=== PATIENT | male | born 1935 | race Caucasian/White ===

== ENCOUNTER → 2018-11-30 | Outpatient (REF) | payer MEDICARE, OTHER ==
[~2018-11-30] MED LIST: ASPIRIN EC81 MG PO; ASPIRIN81 MG OR; BACTRIM DS1 TAB PO; CORDARONE200 MG PO; COUMADIN2.5 MG OR; COUMADIN5 MG OR; DILANTIN100 MG PO; DILTIAZEM120 MG OR; FERROUS SULF15 MG/M1 OR; FLAGYL500 MG PO; FUROSEMIDE40 MG OR; HYDROCHLOROT12.5 MG OR; HYDROCHLOROT25 MG PO; LASIX 40 MG TAB40 MG PO; NORCO1 TA1 PO; OMEPRAZOLE40 MG PO; PACERONE100 MG OR; PRILOSEC40 MG PO; SINEMET 10/1001 TA1 OR; TOPROL XL50 MG OR; ZESTRIL10 MG OR; ZOCOR20 MG OR
== END | disposition home or self-care (01) ==
LOC: DI 07:57
PROVIDERS: ATTEND Internal Medicine
DX: R05 Cough (principal)

== ENCOUNTER 2019-11-21 | Emergency (ER) | payer MEDICARE, OTHER ==
[~2019-11-21] MED LIST changes: +ANTIVERT PO; +ARICEPT10 MG PO; +SIMVASTATIN20 MG PO; +SINGULAIR10 MG PO; -TOPROL XL50 MG OR; +TOPROL XL50 MG PO; -ZESTRIL10 MG OR; +ZESTRIL10 MG PO
[2019-11-21 07:27] LABS: HEMATOCRIT 41.8 % (39.0-50.0); HEMOGLOBIN 13.4 g/dl (14.0-18.0); IMMATURE GRANULOCYTES 0.4 % (0.0-5.0); MEAN CELL VOLUME 88.6 fL CALC (80.0-100.0); MEAN CORPUSCULAR HGB 28.4 pG CALC (26.0-32.0); MEAN CORPUSCULAR HGB CONC 32.1 g/L CALC (32.0-36.0); NEUT# 3.65 thou/uL (1.82-7.42); RED BLOOD COUNT 4.72 mill/uL (4.70-6.10); RED CELL DISTRI WIDTH 18.6 % (11.5-15.5)
[2019-11-21 07:41] LABS: PROTHROMBIN TIME 10.4 SECONDS (9.0-12.5)
[2019-11-21 07:42] LABS: ALBUMIN 4.1 g/dL (3.2-5.0); ALKALINE PHOSPHATASE 76 u/l (38-126); AMYLASE 77 u/l (30-110); ANION GAP 12 (6-22 (CALC)); BUN 26 mg/dL (8-23); BUN/CREATININE RATIO 20 (12-20 (CALC)); CARBON DIOXIDE 28 mmol/l (22-30); CHLORIDE 103 mmol/l (95-108); CREATININE 1.3 mg/dL (0.7-1.3); GFR 52 ML/MIN (>=60 (CALC)); GFR FOR AFR.AMER. > 60 ML/MIN (>=60 (CALC)); LIPASE 150 u/l (23-300); POTASSIUM 4.8 mmol/l (3.5-5.1); SGOT/AST 17 u/l (19-48); SODIUM 138 mmol/l (137-146); TOTAL PROTEIN 7.4 g/dL (6.3-8.2)
[2019-11-21 07:43] LABS: BILIRUBIN, TOTAL 0.6 mg/dL (0.0-1.4)
== END 2019-11-21 09:44 | disposition left against medical advice (07) ==
PROVIDERS: Emergency Medicine
DX: R19.7 Diarrhea, unspecified (principal); I25.10 Atherosclerotic heart disease of native coronary artery without angina pectoris; I10 Essential (primary) hypertension; I25.2 Old myocardial infarction; Z86.73 Personal history of transient ischemic attack (TIA), and cerebral infarction without residual deficits; Z85.038 Personal history of other malignant neoplasm of large intestine; Z90.49 Acquired absence of other specified parts of digestive tract; Z91.19 Patient's noncompliance with other medical treatment and regimen
CPT/HCPCS: Q9967

== ENCOUNTER 2022-07-05 16:34 | Observation (INO) | payer MEDICARE, OTHER ==
[~2022-07-05] VITALS: Ht 182.9 cm; Wt 75.7 kg
[2022-07-05] VITALS (15 sets, daily range): BP systolic 80–112; BP diastolic 45–83
--- NOTE | 2022-07-05 16:34 | NUR ---
RECTAL TEMPERATURE 100.7. NOTIFIED OF RESULT
--- NOTE | 2022-07-05 16:58 | NUR ---
PATIENT ESCORTED TO ROOM IN WHEELCHAIR IN [facility]. PROVIDER NOTIFIED OF PATIENT STATUS.
[2022-07-05 17:26] LABS: URINE BLOOD DIPSTICK NEGATIVE (NEGATIVE); URINE COLOR YELLOW; URINE GLUCOSE - DIPSTICK NEGATIVE (NEGATIVE); URINE KETONE NEGATIVE (NEGATIVE); URINE LEUK ESTERASE NEGATIVE (NEGATIVE); URINE PROTEIN - DIPSTICK TRACE mg/dL (NEG-TRACE); URINE SPECIFIC GRAVITY 1.025
[2022-07-05 17:27] LABS: HEMATOCRIT 30.3 % (39.0-50.0); MEAN CELL VOLUME 101.3 fL CALC (80.0-100.0); MEAN CORPUSCULAR HGB 33.4 pG CALC (26.0-32.0); NEUT# 3.37 thou/uL (1.82-7.42); RED BLOOD COUNT 2.99 mill/uL (4.70-6.10); RED CELL DISTRI WIDTH 18.1 % (11.5-15.5)
[2022-07-05 17:27] LABS: URINE BILIRUBIN - DIPSTICK SMALL (NEGATIVE); URINE NITRITE - DIPSTICK NEGATIVE (Negative)
[2022-07-05 17:41] LABS: IMMATURE GRANULOCYTES 17.9 % (0.0-5.0)
[2022-07-05 17:42] LABS: ALBUMIN 4.1 g/dL (3.2-5.0); ANION GAP 15 (6-22 (CALC)); BUN 21 mg/dL (8-23); BUN/CREATININE RATIO 19 (12-20 (CALC)); CARBON DIOXIDE 23 mmol/l (22-30); CHLORIDE 105 mmol/l (95-108); CREATININE 1.1 mg/dL (0.7-1.3); GFR FOR AFR.AMER. > 60 ML/MIN (>=60 (CALC)); GFR OTHER RACES > 60 ML/MIN (>=60 (CALC)); SODIUM 139 mmol/l (137-146); TOTAL PROTEIN 7.4 g/dL (6.3-8.2)
[2022-07-05 17:43] LABS: ALKALINE PHOSPHATASE 105 u/l (38-126); BILIRUBIN, TOTAL 1.3 mg/dL (0.0-1.4); SGOT/AST 141 u/l (19-48)
--- NOTE | 2022-07-05 17:52 | NUR ---
Reassessment of patient completed. No distress noted.
--- NOTE | 2022-07-05 19:16 | NUR ---
ASSUMED CARE OF PT. PT. RESTING QUIETLY IN BED, FAMILY AT BEDSIDE. C/O FEELING COLD TEMP 99. DENIES SOB, C/P OR DISCOMFORT AT THIS TIME
[2022-07-05] MEDS ORDERED: NAMENDA1 TAB PO (21:05)
--- NOTE | 2022-07-05 21:38 | NUR ---
THE PATIENT IS LEAVING AMA. ATTEMPTED TO CALL [facility] TO INQUIRE ABOUT THE STAYING WITH THE PATIENT. THE WORD WAS THAT THIS REQUEST WAS DENIED AND THE STATED THAT IF SHE COULD NOT STAY, HE WOULD NOT STAY. ATTEMPTED TO CALL FOUR TIMES AND WAS GOING TO GO TO THE FLOOR TO ASK IF THE COULD STAY, BUT THEY DID NOT WANT TO WAIT ANY LONGER AND SIGNED OUT AMA.
== END 2022-07-05 21:38 | disposition left against medical advice (07) ==
LOC: ED 16:34 → ED-I 18:45 → ED 19:02 → MS2 19:03
PROVIDERS: Family Medicine; ADMIT Internal Medicine; ATTEND Internal Medicine
DX: R50.9 Fever, unspecified (principal); I10 Essential (primary) hypertension; I25.10 Atherosclerotic heart disease of native coronary artery without angina pectoris; Z86.73 Personal history of transient ischemic attack (TIA), and cerebral infarction without residual deficits; Z85.038 Personal history of other malignant neoplasm of large intestine; Z20.822 Contact with and (suspected) exposure to COVID-19
CPT/HCPCS: J1650

== ENCOUNTER 2022-08-30 10:20 | Emergency (ER) | payer MEDICARE, OTHER ==
[~2022-08-30] VITALS: Ht 182.9 cm; Wt 75.0 kg
[2022-08-30] VITALS (16 sets, daily range): BP systolic 91–138; BP diastolic 41–110
[~2022-08-30 10:20] MED LIST changes: +NAMENDA1 TAB PO
[2022-08-30 11:55] LABS: HEMATOCRIT 29.6 % (39.0-50.0); HEMOGLOBIN 9.8 g/dl (14.0-18.0); MEAN CELL VOLUME 102.1 fL CALC (80.0-100.0); MEAN CORPUSCULAR HGB 33.8 pG CALC (26.0-32.0); MEAN CORPUSCULAR HGB CONC 33.1 g/dL CAL (32.0-36.0); NEUT# 1.97 thou/uL (1.82-7.42); RED BLOOD COUNT 2.9 mill/uL (4.70-6.10); RED CELL DISTRI WIDTH 18.6 % (11.5-15.5)
[2022-08-30 11:56] LABS: IMMATURE GRANULOCYTES 20.3 % (0.0-5.0)
[2022-08-30 11:59] LABS: ALBUMIN 3.8 g/dL (3.2-5.0); ALKALINE PHOSPHATASE 53 u/l (38-126); ANION GAP 8 (6-22 (CALC)); BILIRUBIN, TOTAL 0.6 mg/dL (0.0-1.4); BUN 32 mg/dL (8-23); BUN/CREATININE RATIO 30 (12-20 (CALC)); CARBON DIOXIDE 28 mmol/l (22-30); CHLORIDE 106 mmol/l (95-108); CREATININE 1.1 mg/dL (0.7-1.3); GFR FOR AFR.AMER. > 60 ML/MIN (>=60 (CALC)); GFR OTHER RACES > 60 ML/MIN (>=60 (CALC)); POTASSIUM 4.1 mmol/l (3.5-5.1); SODIUM 138 mmol/l (137-146); TOTAL PROTEIN 7.2 g/dL (6.3-8.2)
[2022-08-30 12:00] LABS: SGOT/AST 46 u/l (19-48)
== END 2022-08-30 15:24 | disposition home or self-care (01) ==
LOC: ED 10:20
PROVIDERS: Family Medicine
DX: S00.03XA Contusion of scalp, initial encounter (principal); S41.112A Laceration without foreign body of left upper arm, initial encounter; I10 Essential (primary) hypertension; I25.10 Atherosclerotic heart disease of native coronary artery without angina pectoris; I25.2 Old myocardial infarction; W19.XXXA Unspecified fall, initial encounter; Y92.009 Unspecified place in unspecified non-institutional (private) residence as the place of occurrence of the external cause; Z86.73 Personal history of transient ischemic attack (TIA), and cerebral infarction without residual deficits

== ENCOUNTER 2022-09-03 07:25 | Inpatient (IN) | payer MEDICARE, OTHER ==
[~2022-09-03] VITALS: Ht 182.9 cm; Wt 73.2 kg
[2022-09-03] VITALS (11 sets, daily range): BP systolic 100–128; BP diastolic 50–80
--- NOTE | 2022-09-03 07:41 | NUR ---
PT ESCORTED VIA EMS STRETCHER TO ROOM 12 FOR EVAL OF WEAKNESS AND FAILURE TO THRIVE
--- NOTE | 2022-09-03 08:02 | NUR ---
FAMILY AT BEDSIDE.
[2022-09-03 08:12] LABS: BASO% 5.8 % (0-3); EOS% 0.2 % (0-8); HEMATOCRIT 31.5 % (39.0-50.0); HEMOGLOBIN 10.4 g/dl (14.0-18.0); MEAN CELL VOLUME 101.3 fL CALC (80.0-100.0); MEAN CORPUSCULAR HGB 33.4 pG CALC (26.0-32.0); MONO% 9.1 % (2-13); NEUT# 5.27 thou/uL (1.82-7.42); NEUT% 61.2 % (42-76); RED BLOOD COUNT 3.11 mill/uL (4.70-6.10); RED CELL DISTRI WIDTH 18.6 % (11.5-15.5)
--- NOTE | 2022-09-03 08:20 | NUR ---
COMLETED STRAIGHT CATH, PT TOLERATED PROCEDURE WELL, NO COMPLICATIONS. URINE 300 ML CLEAR DARK YELLOW NOTED. PT RESTING WITH FAMILY AT BEDSIDE, CALL LIGHT WITHIN REACH
[2022-09-03 08:25] LABS: ALBUMIN 3.6 g/dL (3.2-5.0); ALKALINE PHOSPHATASE 40 u/l (38-126); ANION GAP 11 (6-22 (CALC)); BUN 25 mg/dL (8-23); BUN/CREATININE RATIO 23 (12-20 (CALC)); CARBON DIOXIDE 29 mmol/l (22-30); CHLORIDE 107 mmol/l (95-108); CREATININE 1.1 mg/dL (0.7-1.3); GFR FOR AFR.AMER. > 60 ML/MIN (>=60 (CALC)); GFR OTHER RACES > 60 ML/MIN (>=60 (CALC)); POTASSIUM 3.7 mmol/l (3.5-5.1); SGOT/AST 22 u/l (19-48); SODIUM 142 mmol/l (137-146); TOTAL PROTEIN 7.3 g/dL (6.3-8.2)
[2022-09-03 08:27] LABS: BILIRUBIN, TOTAL 1.3 mg/dL (0.0-1.4)
[2022-09-03 08:44] LABS: IMMATURE GRANULOCYTES 14.7 % (0.0-5.0)
[2022-09-03 09:24] LABS: URINE BILIRUBIN - DIPSTICK NEGATIVE (NEGATIVE); URINE BLOOD DIPSTICK NEGATIVE (NEGATIVE); URINE COLOR YELLOW; URINE GLUCOSE - DIPSTICK NEGATIVE (NEGATIVE); URINE KETONE NEGATIVE (NEGATIVE); URINE LEUK ESTERASE NEGATIVE (NEGATIVE); URINE PROTEIN - DIPSTICK TRACE mg/dL (NEG-TRACE); URINE SPECIFIC GRAVITY 1.025
[2022-09-03 09:25] LABS: URINE NITRITE - DIPSTICK NEGATIVE (Negative)
--- NOTE | 2022-09-03 10:47 | NUR ---
patient to be admitted to [facility]. family at bedside, agrees with POC.
--- NOTE | 2022-09-03 10:50 | NUR ---
PT ARRIVED FROM ED VIA STRETCHER ACCOMPAINED BY FAMILY MEMBERS AND LEI MATAMOROS. PT DROWSY, WAKES TO PAINFUL STIMULI ONLY. IV SITE APPEARS HEALTHY. FLORIST IN PLACE. PT SLID FROM STRETCHER TO BED X3 PERSON ASSIST, PT BECAME MORE ALERT WITH TRANSFER, BUT THEN BACK TO SLEEP. INCONTINENT OF BOWEL AND BLADDER PER FAMILY. BED ALARM SET FOR SAFETY. DISCUSSED POC AND SAFETY PRECAUTIONS WITH FAMILY MEMBERS AT THIS TIME. ORIENTED TO ROOM AND CALL LIGHT SYSTEM. WILL CONTINUE TO MONITOR.
--- NOTE | 2022-09-03 13:31 | NUR ---
MRI SCREENING COMPLETED AT THIS TIME, NOTIFIED DINESH DAVIDSON OF BULLET IN HIP/BUTTOCKS.
--- NOTE | 2022-09-03 14:54 | NUR ---
was asked to apply padding to bed rails, so i applied one, but family asked for the other not to. that way the family member could keep an eye on patient. I was also asked to apply papo hose, but was asked to wait until he was awake per family
--- NOTE | 2022-09-03 17:30 | NUR ---
PT INCONTINENT OF BLADDER AT THIS TIME. PERICARE PROVIDED WITH CLEAN BRIEF. REPOSITIONED ON LEFT SIDE AND SAT UP IN BED. CHOCOLATE ENSURE PROVIDED TO FAMILY MEMBER UPON REQUEST. COMPRESSION STOCKINGS APPLIED, EDUCATED PT FAMILY MEMBER ON IMPORTANCE OF DVT PROPHYLAXIS. PT MORE ALERT AT THIS TIME, EYES OPEN AND RESPONSIVE TO MINIMAL QUESTIONING. PT ABLE TO FOLLOW COMMANDS TO DRINK WATER AND NO APPARENT PROBLEMS SWALLOWING WHILE SITTING UP AT 90 DEGREES. CALL LIGHT WITHIN REACH. WILL CONTINUE TO MONITOR.
--- NOTE | 2022-09-03 20:11 | NUR ---
PT SLEEPING IN SEMI FOWLERS POSITION DAUGHTER AT BEDSIDE. RESPONSES TO PAINFUL STEMULI ONLY.RESPIRATIONS EVEN AND UNLABORED ON 2L NC.LUNG SOUNDS CLEAR. HEART RHYTHM IRREGULAR WITH TELE IN PLACE. BOWEL SOUNDS ACTIVE. #20G EMS RW PATENT. REDNESS NOTED TO BUTTOCKS. Q2H ENFORCED. NO SIGNS OF ANY PAINS OR DISCOMFORTS.DAUGHTER QUESTIONS MEDICATIONS, TO BE CALLED TO VERIFY. DAUGHTER TO REMAIN AT SIDE.ALL SAFTEY PRECAUTIONS ARE IN PLACE WITH CALL LIGHT IN REACH. BED ALARM ACTIVE
[2022-09-04] VITALS (8 sets, daily range): BP systolic 96–117; BP diastolic 47–66
--- NOTE | 2022-09-04 00:36 | NUR ---
PT SLEEPING IN SEMI FOWLERS POSITION. RESPIRATIONS EVEN AND UNLABORED ON 1L NC. TELE MONITORING IN PLACE. IV SITE NOTED. PT REPOSITIONED AT THIS TIME. NO SIGNS OF ANY DISTRESS. ALL SAFTEY PRECAUTIONS ARE IN PLACE WITH CALL LIGHT IN REACH
--- NOTE | 2022-09-04 01:42 | NUR ---
TYLENOL ADMINISTERED FOR LOW GRADE TEMP. CRUSHED AND ADMINISTERED WITH CHOCOLATE PUDDING. PT TOLERATING WELL. DAUGHTER AT BEDSIDE CONTINUING TO FEED PT PUDDING.
--- NOTE | 2022-09-04 04:50 | NUR ---
PT SLEEPING IN SEMI FOLWERS POSITION WITH DAUGHTER AT BEDSIDE. RESPIRATIONS EVEN AND UNLABORED ON 1L NC. TELE MONITORING IN PLACE. NEW #22G LAC STARTED.MORNING LABS COLLECTED AT THIS TIME. #20G EMS REMOVED WITH CATH INTACT. PT REPOSITIONED AT THIS TIME. AQUACEL APPLIED TO BUTTOCKS. PT YELLS OUT WHEN TURNING BUT DOES NOT ANSWER WHEN ASKED IF HE IS IN PAIN. PT PREVIOSULY MEDICATED WITH TYLENOL. PILLOWS APPLIED FOR COMFORT.ALL SAFTEY PRECAUTIONS ARE IN PLACE WITH CALL LIGHT IN REACH
[2022-09-04 05:56] LABS: BASO% 2.5 % (0-3); EOS% 0.2 % (0-8); HEMATOCRIT 27.8 % (39.0-50.0); HEMOGLOBIN 9.4 g/dl (14.0-18.0); LYMPH% 9.4 % (15-41); MEAN CELL VOLUME 101.8 fL CALC (80.0-100.0); MEAN CORPUSCULAR HGB 34.4 pG CALC (26.0-32.0); MEAN CORPUSCULAR HGB CONC 33.8 g/dL CAL (32.0-36.0); MONO% 8.8 % (2-13); NEUT# 5.24 thou/uL (1.82-7.42); NEUT% 64.4 % (42-76); RED BLOOD COUNT 2.73 mill/uL (4.70-6.10); RED CELL DISTRI WIDTH 17.8 % (11.5-15.5)
[2022-09-04 06:05] LABS: IMMATURE GRANULOCYTES 14.7 % (0.0-5.0)
[2022-09-04 06:07] LABS: ALBUMIN 3.5 g/dL (3.2-5.0); ALKALINE PHOSPHATASE 41 u/l (38-126); ANION GAP 11 (6-22 (CALC)); BILIRUBIN, TOTAL 1.1 mg/dL (0.0-1.4); BUN 31 mg/dL (8-23); BUN/CREATININE RATIO 30 (12-20 (CALC)); CARBON DIOXIDE 31 mmol/l (22-30); CHLORIDE 108 mmol/l (95-108); GFR FOR AFR.AMER. > 60 ML/MIN (>=60 (CALC)); GFR OTHER RACES > 60 ML/MIN (>=60 (CALC)); POTASSIUM 3.6 mmol/l (3.5-5.1); SGOT/AST 23 u/l (19-48); SODIUM 146 mmol/l (137-146); TOTAL PROTEIN 6.9 g/dL (6.3-8.2)
--- NOTE | 2022-09-04 07:19 | NUR ---
[facility] FROM [facility]. ASSUMED PT CARE. PT RESTING IN BED. DAUGHTER REMAINS AT BEDSIDE.
--- NOTE | 2022-09-04 08:44 | NUR ---
PT SITTING UP IN BED EATING BREAKFAST WITH THE ASSISTANCE OF . PT RESPONSIVE AND ANSWERING SIMPLE QUESTIONS FOR . NO APPARENT DISTRESS NOTED. CALL LIGHT WITHIN REACH. WILL CONTINUE TO MONITOR.
--- NOTE | 2022-09-04 19:50 | NUR ---
PATIENT RESTING IN BED, SLEEPING. ASSESSMENT COMPLETE. NO SIGNS OF DISTRESS NOTED. SIGNS OF PAIN ONLY WHEN PATIENT IS MOVED TO CHANGE DURING ADLS. DAUGHTER AT BEDSIDE. HOB REMAINS ELEVATED. BED IN LOW POSITION. CALL HOWARD IN REACH.
--- NOTE | 2022-09-04 23:53 | NUR ---
PATIENT REMAINS RESTING IN BED WITH HOB ELEVATED. RESPONDS WHEN TALKING TO HIM, MINIMALLY. CHANGED PATIENT WITH CEILING INSULATION BLOWER, AND TURNED HIM. DAUGHTER REMAINS AT BEDSIDE. BED REMAINS IN LOW POSITION. CALL HOWARD IN REACH.
[2022-09-05] VITALS (8 sets, daily range): BP systolic 97–116; BP diastolic 46–64
--- NOTE | 2022-09-05 04:47 | NUR ---
PATIENT RESTING IN BED, WITH EYES CLOSED. HOB REMAINS ELEVATED. AWAKENS TO SOUND AND MOVEMENT. NO SIGNS OF PAIN AT THIS TIME. NO DISTRESS NOTED. DAUGHTER REMAINS AT BEDSIDE. BED REMAINS IN LOW POSITION. CALL HOWARD IN REACH.
[2022-09-05 06:14] LABS: EOS% 0.5 % (0-8); HEMATOCRIT 26.3 % (39.0-50.0); HEMOGLOBIN 8.7 g/dl (14.0-18.0); LYMPH% 11.7 % (15-41); MEAN CELL VOLUME 104.4 fL CALC (80.0-100.0); MEAN CORPUSCULAR HGB 34.5 pG CALC (26.0-32.0); MEAN CORPUSCULAR HGB CONC 33.1 g/dL CAL (32.0-36.0); MONO% 6.8 % (2-13); NEUT# 3.69 thou/uL (1.82-7.42); NEUT% 58.5 % (42-76); RED BLOOD COUNT 2.52 mill/uL (4.70-6.10); RED CELL DISTRI WIDTH 17.6 % (11.5-15.5)
[2022-09-05 06:20] LABS: IMMATURE GRANULOCYTES 18.5 % (0.0-5.0)
[2022-09-05 06:24] LABS: ALBUMIN 2.9 g/dL (3.2-5.0); ALKALINE PHOSPHATASE 36 u/l (38-126); ANION GAP 8 (6-22 (CALC)); BILIRUBIN, TOTAL 0.8 mg/dL (0.0-1.4); BUN 32 mg/dL (8-23); BUN/CREATININE RATIO 29 (12-20 (CALC)); CARBON DIOXIDE 30 mmol/l (22-30); CHLORIDE 108 mmol/l (95-108); CREATININE 1.1 mg/dL (0.7-1.3); GFR FOR AFR.AMER. > 60 ML/MIN (>=60 (CALC)); GFR OTHER RACES > 60 ML/MIN (>=60 (CALC)); POTASSIUM 3.9 mmol/l (3.5-5.1); SGOT/AST 20 u/l (19-48); SODIUM 142 mmol/l (137-146); TOTAL PROTEIN 6.1 g/dL (6.3-8.2)
--- NOTE | 2022-09-05 08:00 | NUR ---
PT RESTING WITH AT BEDSIDE. ASSESSMENT COMPLETED. UPDATED PT IN CURRENT PLAN OF CARE. PT AND INDICATED UNDERSTANDING. FALL/SAFETY PRECAUTION IN PLACE. CALL LIGHT WITHIN REACH
--- NOTE | 2022-09-05 12:00 | NUR ---
ROJAS CATHETER PLACED. PT TOLERATED WELL. URINE SHOWED DARK SUZIE URINE OUTPUT OF 1100CC EDUCATED PT AND FAMILY MEMBER ABOUT ROJAS CATHETER. PT INIDCATED UNDERATANDING. FALL/SAFTEY PRECAUTION IN PLACE, CALL LIGHT WITHIN REACH
--- NOTE | 2022-09-05 14:13 | NUR ---
PT RESTING IN BED. BREATHIGN EVEN AND UNLABORED. NO DISTRESS NOTED. TELE MONITOR IN PLACE, CONTINOUS MONITORING PER ED. ROJAS IN PLACE, DRAINING VIA GRAVITY. SHOWING DARK SUZIE URINE. FALL/SAFTEY PRECAUTION IN PLACE. CALL LIGHT WITHIN REACH
--- NOTE | 2022-09-05 16:00 | NUR ---
PT RESTING WITH FAMILY MEMBER AT BEDSIDE. STATES NO PAIN. ROJAS CATHETER IN PLACE DRAINIGN URINE VIA GRAVITY FALL/SAFTEY PRECAUTION IN PLACE. CALL LIGHT WITHIN REACH.
--- NOTE | 2022-09-05 19:15 | NUR ---
PATIENT OBSERVED LAYING IN BED. ALERT TO SOUND. PATIENT HAS A HARD TIME WITH COMMUNICATING, AND ALSO [place]. ASSESSMENT COMPLETE. NO SIGNS OF DISTRESS. NO SIGNS OF PAIN BUT DOES REMAIN GUARDING RIGHT UPPER EXTREMITY. IT WAS REPORTED FROM DAY SHIFT NURSE THAT PATIENT HAD XRAY OF EXTREMITY AND IT WAS NEGATIVE. PATIENT VOICED NEEDING TO HAVE BM. AMBULATED TO [facility] WITH STAFF TIMES 2. PATIENT VERY UNSTEADY AND TAKES A LONG TIME TO SIT DOWN ON COMMODE. NO BM NOTED. PATIENT CLEANED UP AND TRANSFERED BACK IN TO BED. DAUGHTER REMAINS AT BEDSIDE. ROJAS REMAINS PATENT DRAINING SUZIE CLEAR URINE. BED REMAINS IN LOW POSITION, CALL HOWARD IN REACH.
[2022-09-06] VITALS (9 sets, daily range): BP systolic 98–125; BP diastolic 48–72
--- NOTE | 2022-09-06 00:30 | NUR ---
PATIENT REMAINS RESTING IN BED WITH EYES CLOSED. NO SIGNS OF DISTRESS. NO COMPLAINTS OF PAIN. PATIENT GETS POSITION CHANGED DUE TO HIM NOT BEING ABLE TO MOVE ALOT HIMSELF. DAUGHTER REMAINS AT BEDSIDE. BED IN LOW POSITION. CALL HOWARD IN REACH.
--- NOTE | 2022-09-06 04:45 | NUR ---
PATIENT RESTING IN BED WITH EYES CLOSED. NO SIGNS OF DITRESS. NO COMPLAINTS OF PAIN. DAUGHTER REMAINS AT BEDSIDE. BED IN LOW POSITION. CALL HOWARD IN REACH.
[2022-09-06 05:47] LABS: BASO% 3.1 % (0-3); EOS% 1.7 % (0-8); HEMATOCRIT 27.5 % (39.0-50.0); HEMOGLOBIN 8.8 g/dl (14.0-18.0); LYMPH% 12.5 % (15-41); MEAN CELL VOLUME 105.4 fL CALC (80.0-100.0); MEAN CORPUSCULAR HGB 33.7 pG CALC (26.0-32.0); MONO% 6.3 % (2-13); NEUT# 2.35 thou/uL (1.82-7.42); NEUT% 56.4 % (42-76); RED BLOOD COUNT 2.61 mill/uL (4.70-6.10); RED CELL DISTRI WIDTH 17.6 % (11.5-15.5)
[2022-09-06 06:13] LABS: ALBUMIN 2.8 g/dL (3.2-5.0); ALKALINE PHOSPHATASE 34 u/l (38-126); ANION GAP 10 (6-22 (CALC)); BILIRUBIN, TOTAL 0.7 mg/dL (0.0-1.4); BUN 27 mg/dL (8-23); BUN/CREATININE RATIO 29 (12-20 (CALC)); CARBON DIOXIDE 28 mmol/l (22-30); CHLORIDE 107 mmol/l (95-108); CREATININE 0.9 mg/dL (0.7-1.3); GFR FOR AFR.AMER. > 60 ML/MIN (>=60 (CALC)); GFR OTHER RACES > 60 ML/MIN (>=60 (CALC)); POTASSIUM 4.2 mmol/l (3.5-5.1); SGOT/AST 34 u/l (19-48); SODIUM 141 mmol/l (137-146); TOTAL PROTEIN 6.2 g/dL (6.3-8.2)
--- NOTE | 2022-09-06 08:39 | NUR ---
PT REPOSITIONED FOR COMFORT, FLAT AFFECT NOTED, WITH MINIMAL REPSONSES PROVIDED, TO QUESTIONS IF ANY RESPONSE AT ALL, AND DAUGHTER AT BEDSIDE AND THEY TEND TO REPSOND FOR HIM.
--- NOTE | 2022-09-06 09:50 | NUR ---
pt awake in bed; BEAVER: spouse and daughter present at bedside; am meds reviewed/explained; spouse states pt receives Toprol and montelukast at bedside; Rx to be notified to change schedule
--- NOTE | 2022-09-06 11:28 | NUR ---
Nursing care assumed. Patient alert and oriented to self. Resting quietly in bed, spouse at bedside. Assessment complete. Sánchez to gravity; clear, naeem urine. Bed in low position, locked; alarm activated. Call light within reach, instructed to call for assistance.
--- NOTE | 2022-09-06 16:49 | NUR ---
Resting quietly eyes closed. No distress noted. Sánchez to gravity. Family at bedside, call light within reach.
--- NOTE | 2022-09-06 21:06 | NUR ---
PT RESTING IN SEMI FOWLERS POSITION WITH DAUGHTER AT BEDSIDE. PT A/OX1 AND RESTLESS AT TIMES. RESPIRATIONS EVEN AND UNLABORED ON ROOM AIR. LUNG SOUNDS CLEAR. HEART RHYTHM IRREGULAR WITH TELE IN PLACE. BOWEL SOUNDS ACTIVE. #22G LAC INFILTRATED. NEW #22G RW STARTED. SKIN INTACT. ROJAS CATH DRAINING PER GRAVITY, TUBING UNKINKED. REDNESS NOTED TO BUTTOCKS. PT DENIES OF ANY NEEDS. ALL SAFTEY PRECAUTIONS ARE IN PLACE WITH CALL LIGHT IN REACH. BED ALARM ACTIVE.
[2022-09-07] VITALS (10 sets, daily range): BP systolic 95–104; BP diastolic 46–62
--- NOTE | 2022-09-07 00:25 | NUR ---
PT RESTING IN SEMI FOWLERS POSITION. RESPIRATIONS EVEN AND UNLABORED ON 2L NC. TELE MONITORING IN PLACE. IV SITE NOTED. ROJAS CATH DRAINGIN PER GRAVITY. PT DENIES OF ANY NEEDS. ALL SAFTEY PRECAUTIONS ARE IN PLACE WITH CALL LIGHT IN REACH. DAUGHTER AT BEDSIDE. BEDALARM ACTIVE.
--- NOTE | 2022-09-07 04:39 | NUR ---
PT RESTING IN SEMI FOWLERS POSITION. RESPIRATIONS EVEN AND UNLABORED ON 2L NC. TELE MONITORING IN PLACE. #22G RW NOTED. ROJAS CATH DRAINING PER GRAVITY. PT DENIES OF ANY NEEDS AT THIS TIME. ALL SAFTEY PRECAUTIONS ARE IN PLACE WITH CALL LIGHT IN REACH. DAUGHTER REMAINS AT BEDSIDE
--- NOTE | 2022-09-07 06:50 | NUR ---
REPORT FROM MOLLY KENYON. ASSUMED PT CARE.
--- NOTE | 2022-09-07 11:50 | NUR ---
PT CALLED RIGGING UP MAN TO ROOM FOR GURGLING SOUND. PT NOTED WITH THICK SECRETION AND NOT ABLE TO COUGH UP AND OUT. PT SUCTION WITH YANKAUER, TOLERATED WELL. PT AIRWAY CLEAR AT THIS TIME. WILL CONTINUE TO MONITOR.
--- NOTE | 2022-09-07 15:53 | NUR ---
PT REPOSITIONED IN BED. NO APPARENT DISTRESS NOTED. ROJAS REMAINS PATENT. IV SITE APPEARS A LITTLE SWOLLEN WHEN FLUSHED, NO REDNESS NOTED. IV SITE REMOVED AND NEW IV INITIATED X1 ATTEMPT. PT TOLERATED WELL. PT REMAINS AT BEDSIDE. CALL LIGHT WITHIN REACH. WILL CONTINUE TO MONITOR.
--- NOTE | 2022-09-07 19:00 | NUR ---
REPORT RECEIVED FROM Allen ALVAREZ RN.
--- NOTE | 2022-09-07 20:10 | NUR ---
PATIENT REFUSED TO TAKE MEDICATION. PATIENT SLEEPING AND EASILY AWOKEN, BUT NOT ORIENTED. UNABLE TO TAKE MEDICATIONS. DAUGHTER ATTEMPTED WITH NO SUCCESS. MULTIPLE ATTEMPTS MADE WITH OUT SUCCESS. PATIENT HR AND B/P STABLE AT THIS TIME. DAUGHTER REMAINS AT BEDSIDE.
[2022-09-08] VITALS (10 sets, daily range): BP systolic 94–114; BP diastolic 43–69
--- NOTE | 2022-09-08 00:35 | NUR ---
PATIENT RESTING SOUNDLY. AWAKENS EASILY BUT DOES NOT RESPOND. DAUGHTER AT BEDSIDE.
[2022-09-08 05:18] LABS: BASO% 2.9 % (0-3); EOS% 1.8 % (0-8); HEMATOCRIT 24.9 % (39.0-50.0); HEMOGLOBIN 8.1 g/dl (14.0-18.0); LYMPH% 13.8 % (15-41); MEAN CELL VOLUME 103.3 fL CALC (80.0-100.0); MEAN CORPUSCULAR HGB 33.6 pG CALC (26.0-32.0); MEAN CORPUSCULAR HGB CONC 32.5 g/dL CAL (32.0-36.0); MONO% 6.5 % (2-13); NEUT# 2.24 thou/uL (1.82-7.42); NEUT% 58.1 % (42-76); RED BLOOD COUNT 2.41 mill/uL (4.70-6.10)
[2022-09-08 05:24] LABS: IMMATURE GRANULOCYTES 16.9 % (0.0-5.0)
[2022-09-08 05:39] LABS: ALBUMIN 2.8 g/dL (3.2-5.0); ALKALINE PHOSPHATASE 40 u/l (38-126); ANION GAP 7 (6-22 (CALC)); BILIRUBIN, TOTAL 0.6 mg/dL (0.0-1.4); BUN 20 mg/dL (8-23); BUN/CREATININE RATIO 22 (12-20 (CALC)); CARBON DIOXIDE 29 mmol/l (22-30); CHLORIDE 111 mmol/l (95-108); CREATININE 0.9 mg/dL (0.7-1.3); GFR FOR AFR.AMER. > 60 ML/MIN (>=60 (CALC)); GFR OTHER RACES > 60 ML/MIN (>=60 (CALC)); SGOT/AST 25 u/l (19-48); SODIUM 142 mmol/l (137-146); TOTAL PROTEIN 6.1 g/dL (6.3-8.2)
--- NOTE | 2022-09-08 07:10 | NUR ---
PATIENT AWAKE AND RESPONDING APPROPRIATELY. INFORMED ONCOMING NURSE OF PATIENTS RESULA/INABILITY TO TAKE MEDICATIONS YESTERDAY EVENING. MENTIONED TO NURSE THAT HE TAKES TOPROL XL AT NIGHT TIME AND HE WAS NOT ABLE TO TAKE IT.
--- NOTE | 2022-09-08 07:57 | NUR ---
pATIENT RESTING SOUNDLY. AWAKENS EASILY BUT DOES NOT RESPOND. DAUGHTER AT BEDSIDE.
--- NOTE | 2022-09-08 08:00 | NUR ---
PT HAS SPOUSE AND DAUGHTER AT BEDSIDE, PT IS MATCH-[employer]-NA[employer]HE-W[employer] BAND, PT ANSWERS TO NAME. PT SHOWS NO S/SX OF ANY PAIN OR SOB. PT IS ON 1LNC. PT UNABLE TO FOLLOW COMMANDS, AND MAKES HIS NEEDS KN0WN FOR BOWELS. PT DOESN'T RESPOND TO ORIENTATION QUESTIONS. PT HAS CALL LIGHT NEAR, AND IS PLACED ON FALL PRECAUTIONS. VS ASSESSED, WILL CONTINUE TO MONITOR.
--- NOTE | 2022-09-08 13:00 | NUR ---
PT HAS BEEN REPOSITIONED, PT RESPONDS TO VERBAL STIMULI, PT HAS SPOUSE NEARBY, SPOUSE STATES HE ATE A GOOD LUNCH, PT NEEDS HAVE BEEN ADDRESSED. WILL CONTINUE TO MONITOR.
--- NOTE | 2022-09-08 16:30 | NUR ---
PT HAS BEEN ASSISTED WITH BEDPAN, PT IS ABLE TO HELP VERY LITTLE, PT SPOUSE AT BEDSIDE. PT HAS HAD SMALL BM, PT HAS OPEN WOUND BETWEEN BUTTOCKS AND WOUND HAVE BEEN CLEANED AND HAS BEEN PHOTOGRAPHED AND NEW DRESSING HAS BEEN APPLIED. PT IS BEING ACTIVELY Q2 TURNED. PT HAS NO CHANGE TO ASSESSMENT. PT FAMILY IS AT BEDSIDE AND IS HELPFUL WITH FAMILY.
--- NOTE | 2022-09-08 19:00 | NUR ---
RECIEVED REPORT FROM PT. ASSESSED AT BEDSIDE. PT UP IN ROOM. PT ALERT AND ORIENTATED X1. IV SITE FLUSHED. BREATHING EVEN AND NON-LABORED, WEARING 1L O2 VIA NC. DAUGHTER AT BEDSIDE. IV SITE FLUSHED. ROJAS IN PLACE, ORANGE URINE. DENIES ANY NEEDS AT THIS TIME
--- NOTE | 2022-09-08 22:06 | NUR ---
MEDICATION TOPROL GIVEN LATE DUE TO PT AGGITATION WITH NEEDING TO MANUALLY CHECK BLOOD PRESSURE AND HEART RATE BEFORE GIVING MEDICATION. ONCE PT WAS GIVEN MEDICATION PT ROLLED PILL IN MOUTH FOR ABOUT 30 MINUTES BEFORE SWALLOWING. TRIED TO ASSIST PT WITH SWALLOWING MEDICATION BY PROVIDING A DRINK AND AN APPLE SAUCE, PT STILL MANAGED TO KEEP PILL ON THE TONGUE. EVENTUALLY MEDICATION WAS SWALLOWED.
[2022-09-09] VITALS (9 sets, daily range): BP systolic 88–119; BP diastolic 46–68
--- NOTE | 2022-09-09 | NUR ---
PT SLEEPING IN ROOM, DAUGHTER AT BEDSIDE. TURNED PT ON LEFT SIDE. BREATHING IS EVEN AND NON-LABORED. PT EASILY AROUSED. DENIES ANY PAIN OR DISCOMFORT. ALL SAFETY PRECAUTIONS IN PLACE AT THIS TIME
--- NOTE | 2022-09-09 04:00 | NUR ---
PT IN BED. ASSISTED SOUS CHEF KITCHEN MANAGER WITH TURNING PT. DRESSING ON COCYX WOUND CHANGED. PT ATTEMPTING TO HAVE BOWEL MOVEMENT. BREATHING REMAINS THE SAME. IV SITE FLUSHED. TELE IN PLACE, MONITORED BY ED. DAUGHTER AT BED SIDE. ALL SAFETY PRECAUTIONS IN PLACE AT THIS TIME
[2022-09-09 09:18] LABS: BASO% 3.9 % (0-3); EOS% 1.1 % (0-8); HEMATOCRIT 26.2 % (39.0-50.0); HEMOGLOBIN 8.7 g/dl (14.0-18.0); LYMPH% 17.5 % (15-41); MEAN CORPUSCULAR HGB 34.5 pG CALC (26.0-32.0); MEAN CORPUSCULAR HGB CONC 33.2 g/dL CAL (32.0-36.0); MONO% 3.9 % (2-13); NEUT# 2.13 thou/uL (1.82-7.42); NEUT% 59.4 % (42-76); RED BLOOD COUNT 2.52 mill/uL (4.70-6.10); RED CELL DISTRI WIDTH 17.3 % (11.5-15.5)
[2022-09-09 09:27] LABS: IMMATURE GRANULOCYTES 14.2 % (0.0-5.0)
[2022-09-09 09:44] LABS: ALBUMIN 3.1 g/dL (3.2-5.0); ALKALINE PHOSPHATASE 43 u/l (38-126); ANION GAP 13 (6-22 (CALC)); BILIRUBIN, TOTAL 0.5 mg/dL (0.0-1.4); BUN 21 mg/dL (8-23); BUN/CREATININE RATIO 26 (12-20 (CALC)); CARBON DIOXIDE 27 mmol/l (22-30); CHLORIDE 109 mmol/l (95-108); CREATININE 0.8 mg/dL (0.7-1.3); GFR FOR AFR.AMER. > 60 ML/MIN (>=60 (CALC)); GFR OTHER RACES > 60 ML/MIN (>=60 (CALC)); POTASSIUM 4.8 mmol/l (3.5-5.1); SGOT/AST 25 u/l (19-48); SODIUM 144 mmol/l (137-146); TOTAL PROTEIN 6.4 g/dL (6.3-8.2)
[2022-09-09 15:39] LABS: URINE BILIRUBIN - DIPSTICK NEGATIVE (NEGATIVE); URINE BLOOD DIPSTICK TRACE-INTACT (NEGATIVE); URINE COLOR YELLOW; URINE GLUCOSE - DIPSTICK NEGATIVE (NEGATIVE); URINE KETONE TRACE mg/dL (NEGATIVE); URINE LEUK ESTERASE NEGATIVE (NEGATIVE); URINE PROTEIN - DIPSTICK TRACE mg/dL (NEG-TRACE); URINE SPECIFIC GRAVITY >=1.030
[2022-09-09 15:45] LABS: URINE NITRITE - DIPSTICK NEGATIVE (Negative)
--- NOTE | 2022-09-09 19:00 | NUR ---
BEDSIDE SHIFT REPORT COMPLETE. PATIENT RESTING QUIETLY EYES CLOSED, DAUGHTER AT BEDSIDE.
--- NOTE | 2022-09-09 20:40 | NUR ---
PATIENT ALERT AND ORIENTED TO SELF. ASSESSMENT COMPLETE. RESTING QUIETLY, DAUGHTER AT BEDSIDE. ROJAS TO GRAVITY, PATENT. NO DISTRESS NOTED. CALL LIGHT WITHIN REACH.
--- NOTE | 2022-09-09 21:35 | NUR ---
TOPROL Xl 50MG HELD, BLOOD PRESSURE 106/46. PREVIOUS BLOOD PRESSURE 99/51.
[2022-09-10] VITALS (7 sets, daily range): BP systolic 93–114; BP diastolic 44–70
--- NOTE | 2022-09-10 00:40 | NUR ---
PATIENT RESTING QUIETLY EYES CLOSED. VSS, NO DISTRESS NOTED. DAUGHTER AT BEDSIDE. CALL LIGHT WITHIN REACH.
--- NOTE | 2022-09-10 04:25 | NUR ---
RESTING QUIETLY EYES CLOSED. VSS, NO DISTRESS NOTED. ROJAS TO GRAVITY, PATENT. DAUGHTER AT BEDSIDE, NO CONCERNS EXPRESSED. CALL LIGHT WITHIN REACH.
[2022-09-10 05:55] LABS: EOS% 1.2 % (0-8); HEMATOCRIT 23.3 % (39.0-50.0); HEMOGLOBIN 7.6 g/dl (14.0-18.0); LYMPH% 21.9 % (15-41); MEAN CORPUSCULAR HGB 34.2 pG CALC (26.0-32.0); MEAN CORPUSCULAR HGB CONC 32.6 g/dL CAL (32.0-36.0); MONO% 6.4 % (2-13); NEUT# 1.43 thou/uL (1.82-7.42); NEUT% 43.4 % (42-76); RED BLOOD COUNT 2.22 mill/uL (4.70-6.10); RED CELL DISTRI WIDTH 17.1 % (11.5-15.5)
[2022-09-10 05:57] LABS: IMMATURE GRANULOCYTES 23.1 % (0.0-5.0)
[2022-09-10 06:07] LABS: ALKALINE PHOSPHATASE 43 u/l (38-126); ANION GAP 7 (6-22 (CALC)); BILIRUBIN, TOTAL 0.4 mg/dL (0.0-1.4); BUN 21 mg/dL (8-23); BUN/CREATININE RATIO 21 (12-20 (CALC)); CARBON DIOXIDE 31 mmol/l (22-30); CHLORIDE 108 mmol/l (95-108); GFR FOR AFR.AMER. > 60 ML/MIN (>=60 (CALC)); GFR OTHER RACES > 60 ML/MIN (>=60 (CALC)); SGOT/AST 22 u/l (19-48); SODIUM 142 mmol/l (137-146); TOTAL PROTEIN 6.6 g/dL (6.3-8.2)
[2022-09-10 06:08] LABS: POTASSIUM 3.8 mmol/l (3.5-5.1)
--- NOTE | 2022-09-10 07:19 | NUR ---
REPORT FROM DAVON MATAMOROS. ASSUMED PT CARE.
--- NOTE | 2022-09-10 08:59 | NUR ---
pt on room air sat 98%
--- NOTE | 2022-09-10 09:04 | NUR ---
PT SITTING UP IN BED, AT BEDSIDE. ALERT TO SELF. NO APPARENT DISTRESS NOTED. PT DENIES ANY PAIN OR DISCOMFORT. PT ATTEMPTING TO SPIT MEDICATIONS OUT, ENCOURAGED PT TO SWALLOW. AFTER SEVERAL ATTEMPTS PT FINALLY SWALLOWED WITHOUT DIFFUCULTY. CALL LIGHT WITHIN REACH. WILL CONTINUE TO MONITOR.
--- NOTE | 2022-09-10 10:24 | NUR ---
DINESH DAVIDSON AT BEDSIDE.
--- NOTE | 2022-09-10 11:55 | NUR ---
DR. REEVES AT BEDSIDE.
[2022-09-10] MEDS ORDERED: DOXYCYCLINE100 MG PO (12:22)
--- NOTE | 2022-09-10 15:10 | NUR ---
PT RESTING IN BED. FAMILY AT BEDSIDE. NO APPARENT DISTRESS NOTED. CALL LIGHT WITHIN REACH. WILL CONTINUE TO MONITOR.
--- NOTE | 2022-09-10 17:12 | NUR ---
PER CASE MANAGEMENT NO ROOM AVAILABLE AT REHAB AT THIS TIME. NOTIFIED FAMILY AND PT AT THIS TIME.
--- NOTE | 2022-09-10 19:50 | NUR ---
PATIENT OBSERVED LAYING IN BED WITH HOB ELEVATED. ALERT AND ABLE TO MAKE NEEDS KNOWN. RESPONDS TO SOUND. NO SIGNS OF DISTRESS NOTED. NO COMPLAINTS OF PAIN VOICED. ROJAS PATENT DRAINING CLEAR YELLOW URINE. BED REMAINS IN LOW POSITION. REMAINS ON ISOLATION FOR COVID. CALL HOWARD IN REACH.
[2022-09-11] VITALS (8 sets, daily range): BP systolic 84–121; BP diastolic 49–59
--- NOTE | 2022-09-11 00:28 | NUR ---
PATIENT RESTING IN BED WITH HOB ELEVATED. NO SIGNS OF DISTRESS NOTED. NO SIGNS OF PAIN. BED REMAINS IN LOW POSITION. CALL HOWARD IN REACH.
--- NOTE | 2022-09-11 03:36 | NUR ---
ER CALLED MENTIONING PATIENTS HR GOING UP IN THE 120S. CHECKED ON PATIENT. PATIENT OBSERVED WITH FEET ON SIDE OF BED AND SITTING UP. PATIENT ALSO TOOK OFF HIS NAME BRACELET WHICH IS BACK ON. PATIENT REPOSITIONED BACK IN BED. BED ALARM ON FOR SAFETY. HR BACK DOWN.
--- NOTE | 2022-09-11 04:05 | NUR ---
PATIENT HAS NOT TRIED TO GET OUT OF BED AGAIN. THIS NURSE IS SITTING OUTSIDE OF ROOM IN HALLWAY, CHECKING ON HIM FREQUENTLY TO MAKE SURE HE DOESNT TRY TOO. BED IN LOW POSITION. BED ALARM ACTIVE FOR SAFETY.
--- NOTE | 2022-09-11 06:50 | NUR ---
REPORT FROM BEN MATAMOROS. ASSUMED PT CARE.
--- NOTE | 2022-09-11 11:45 | NUR ---
PT SITTING UP IN CHAIR AT BEDSIDE. FAMILY PRESENT. NO APPARENT DISTRESS NOTED. CALL LIGHT WITHIN REACH. WILL CONTINUE TO MONITOR.
--- NOTE | 2022-09-11 15:44 | NUR ---
PT RESTING IN BED. FAMILY AT BEDSIDE. NO APPARENT DISTRESS NOTED. CALL LIGHT WITHIN REACH. WILL CONTINUE TO MONITOR.
--- NOTE | 2022-09-11 18:55 | NUR ---
CALL PLACED TO DIETARY PER FAMILY MEMBER REQUEST FOR BREAKFAST REQUESTS.
--- NOTE | 2022-09-11 19:10 | NUR ---
PATIENT RESTING IN RECLINER. ASSESSMENT COMPLETE. NO SIGNS OF DISTRESS. NO COMPLAINTS OF PAIN. PATIENT ALERT, TAKES TIME TO REPLY. VERY ZUNI. PATIENT REMAINS ON ISOLATION FOR COVID. CALL LIGHT IN REACH. DAUGHTER REMAINS IN ROOM SITTING AT A DISTANCE.
--- NOTE | 2022-09-11 20:56 | NUR ---
NOTIFIED PSYCHOLOGICAL OPERATIONS OFFICER PROVIDER IN REGARDS TO PATIENTS TOPROL XL DOSE AT HS. HOLD TONIGHT PER PROVIDER.
--- NOTE | 2022-09-12 | NUR ---
PATIENT REMAINS RESTING IN BED WITH HOB ELEVATED. NO SIGNS OF DISTRESS. NO COMPLAINTS OF PAIN. ROJAS PATENT DRAINING CLEAR YELLOW URINE. REMAINS ON ISOLATION FOR COVID. BED REMAINS IN LOW POSTION WITH CALL HOWARD IN REACH. BED ALARM ON FOR SAFETY.
[2022-09-12 00:44] VITALS: BP 97/56
--- NOTE | 2022-09-12 04:30 | NUR ---
PATIENT RESTING IN BED. NO SIGNS OF DISTRESS. NO SIGNS OF PAIN. NO ATTEMPTS OF TRYING TO GET OUT OF BED ON HIS OWN. HOB REMAINS ELEVATED. BED IN LOW POSITION. BED ALARM ACTIVE.
[2022-09-12 04:47] VITALS: BP 106/65
[2022-09-12 06:15] VITALS: BP 97/55
--- NOTE | 2022-09-12 06:50 | NUR ---
REPORT FROM BEN MATAMOROS. ASSUMED PT CARE.
--- NOTE | 2022-09-12 10:02 | NUR ---
PT SITTING UP IN CHAIR. NO APPARENT DISTRESS NOTED. CHAIR ALARM ON FOR SAFETY. CALL LIGHT WITHIN REACH. WILL CONTINUE TO MONITOR.
[2022-09-12 10:25] VITALS: BP 96/54
--- NOTE | 2022-09-12 12:44 | NUR ---
NOTIFIED PT DAUGHTER WYATT OF TRANSPORT SCHEDULED FOR 2PM TO GO TO REHAB.
--- NOTE | 2022-09-12 14:00 | NUR ---
IV site discontinued, cath intact. No edema , no redness, voices no discomfort.
--- NOTE | 2022-09-12 14:08 | NUR ---
Discharge instructions given. Patient verbalizes understanding of same. Discharged in stable condition via [facility] to [facility] with family. All belongings sent with pt.
--- NOTE | 2022-09-12 14:18 | NUR ---
NURSE TO NURSE REPORT GIVEN TO LIDIA AT [facility].
== END 2022-09-12 14:08 | DRG 193 ==
LOC: ED 07:25 → ED-I 09:30 → ED 09:50 → MS2 09:51
PROVIDERS: Family Medicine; Internal Medicine; Nurse Practitioner Family; ADMIT Internal Medicine; ATTEND Internal Medicine
PROC: 0T9B70Z Drainage of Bladder with Drainage Device, Via Natural or Artificial Opening (ICD-10-PCS; principal; 2022-09-05)
DX: J18.9 Pneumonia, unspecified organism (principal); U07.1 COVID-19; I10 Essential (primary) hypertension; E78.5 Hyperlipidemia, unspecified; I25.10 Atherosclerotic heart disease of native coronary artery without angina pectoris; F01.B0 Vascular dementia, moderate, without behavioral disturbance, psychotic disturbance, mood disturbance, and anxiety; R33.9 Retention of urine, unspecified; M25.511 Pain in right shoulder; K21.9 Gastro-esophageal reflux disease without esophagitis; I25.2 Old myocardial infarction; Z86.73 Personal history of transient ischemic attack (TIA), and cerebral infarction without residual deficits; Z85.038 Personal history of other malignant neoplasm of large intestine; Z18.11 Retained magnetic metal fragments
CPT/HCPCS: G0378; J1650